=== PATIENT | male | born 1960 | race Asian ===

== ENCOUNTER 2017-01-29 10:20 | Emergency (ER) | payer SELFPAY ==
[~2017-01-29] VITALS: Ht 167.6 cm; Wt 70.3 kg
[2017-01-29 10:21] VITALS: BP 151/102
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
[2017-01-29] MEDS ORDERED: Bacitracin Oint UD TOPIC ONE (10:30)
[2017-01-29] MEDS ORDERED: Tetanus/Diptheria/Pertussis Vaccine 0.5ml Syr IM ONE (10:30)
[2017-01-29 11:00] VITALS: BP 135/89
--- NOTE | 2017-01-29 11:47 | Diagnostic Imaging Report ---
Indication: TRAUMA Comparison: None Findings: Single view of the chest shows a normal cardiomediastinal silhouette. Pulmonary vasculature is normal. Lung are clear. Soft tissues and osseous structures are within normal limits. The aorta appears tortuous. Impression: No acute chest disease
[2017-01-29] MEDS ORDERED: TRAMADOL HCL50 MG ORAL (12:00)
[2017-01-29] MEDS ORDERED: IBUPROFEN600 MG ORAL (12:00)
[2017-01-29] MEDS ORDERED: BACITRACIN15 GM TOPIC (12:00)
[2017-01-29 12:18] VITALS: BP 134/90
--- NOTE | 2017-02-06 15:57 | Cardiology Report ---
APPROVED REPORT EKG Measurement Heart [id number] ND [id number] Normal sinus rhythm T wave abnormality, consider inferolateral ischemia Abnormal ECG
--- NOTE | 2017-02-06 15:57 | Cardiology Report ---
APPROVED REPORT EKG Measurement Heart [id number] TN 140P57 [id number] Normal sinus rhythm T wave abnormality, consider inferolateral ischemia Abnormal ECG
--- NOTE | 2017-02-06 15:57 | Cardiology Report ---
APPROVED REPORT EKG Measurement Heart [id number] ID [id number] Normal sinus rhythm T wave abnormality, consider inferolateral ischemia Abnormal ECG
== END 2017-01-29 12:18 | disposition home or self-care (01) ==
LOC: EDBD 10:20 → EMR 10:38
DX: S20.219A Contusion of unspecified front wall of thorax, initial encounter (principal); V47.5XXA Car driver injured in collision with fixed or stationary object in traffic accident, initial encounter; Y92.89 Other specified places as the place of occurrence of the external cause; S20.319A Abrasion of unspecified front wall of thorax, initial encounter; Z23 Encounter for immunization
CPT/HCPCS: 71010; 90471; 90715; 93005; 99284